=== PATIENT | female | born 1965 | race Hispanic/Latino ===

== ENCOUNTER 2018-08-25 20:43 | Observation (INO) | payer SELFPAY ==
[2018-08-25] MEDS: Nitroglycerin 0.4 MG TAB (25 Tab Bottle) ONE ×2 (21:17→21:23)
[2018-08-25] MEDS ORDERED: Morphine 4 MG/ML VIAL ONE (21:26)
[2018-08-25] MEDS ORDERED: Ondansetron PF 4 MG/2 ML Vial IVP PRN (21:43)
[2018-08-25] MEDS ORDERED: Nitroglycerin 0.4 MG TAB (25 Tab Bottle) PO PRN (21:43)
[2018-08-25] MEDS ORDERED: Aspirin 325 MG TAB PO SCH (22:30)
[2018-08-25 22:43] LABS: Troponin I Less than 0.010 ng/mL (< 0.028)
[2018-08-25] MEDS: Nitroglycerin 2% Ointment 1 INCH/1 GM Packet TOP SCH (23:20)
--- NOTE | 2018-08-25 23:35 | CT ---
CT CERVICAL SPINE WITHOUT CONTRAST: HISTORY: Pain. Inability to move the right upper and right lower extremities. COMPARISON: 04/15/2017 TECHNIQUE: Noncontrast CT cervical spine is performed in the axial plane. Reformatted images are submitted for interpretation. FINDINGS: Straightening of normal cervical lordosis is presumed to be due to patient position or muscle spasm. The current study is not tailored to assess for ligamentous injury. Cervical spine vertebral body h eight is maintained. No fracture. Appropriate alignment of the lateral masses of C1 and C2. Appropriate alignment of the facets. Inta ct odontoid process. Cervical spine vertebral body height is maintained, and there is no fracture. The visualized soft tissue neck structures, the upper mediastinum, and the lung apices are unremarkab le. Limited evaluation of the contents of the central spinal canal and neural foramina by technique. C2-C3: No significant central canal stenosis or neural foraminal narrowing. C3-C4: No significant central canal stenosis. Mild right foraminal narrowing. Left neural foramen is patent. C4-C5: There appears to be a broad-based disk bulge that abuts the thecal sac. Mild central canal s tenosis. The right neural foramen is patent. Mild left foraminal narrowing. C5-C6: Broad-based disk bulge is present with mild central canal stenosis. Degenerative changes in the bilateral uncovertebral joints results in mild right and mild to moderate left foraminal narrowin g. C6-C7: There is no significant central canal stenosis. The right neural foramen is patent. Mild le ft foraminal narrowing. C7-T1: No significant central canal stenosis. The neural foramina are patent. IMPRESSION: 1. No cervical spine fracture. 2. No evidence of significant central canal stenosis or neural foraminal narrowing. 3. If there is still concern, consider further evaluation with a cervical spine MRI without contrast . Additionally, consider a neurosurgical consultation. POS: [facility]
[2018-08-25] MEDS ORDERED: Dexamethasone 10 MG/ML VIAL SLOW IVP SCH (23:59)
[2018-08-26] MEDS: traMADol HCl 50 MG TAB PO PRN ×4 (00:20→18:26)
[2018-08-26] MEDS: Morphine 2 MG/ML SYRINGE SLOW IVP PRN ×4 (00:51→21:31)
[2018-08-26 02:11] LABS: Troponin I Less than 0.010 ng/mL (< 0.028)
[2018-08-26] MEDS: Acetaminophen 325 MG TAB PO PRN ×2 (03:17→14:47)
[2018-08-26 04:09] VITALS: BMI 35.7
[2018-08-26] MEDS: Cyclobenzaprine 10 MG TAB PO PRN ×2 (04:18→14:47)
[2018-08-26 05:32] LABS: #Basophils 0.1 thou/uL (0.0-0.2); #Lymphocytes 1.2 thou/uL (1.20-3.40); #Monocytes 0.1 thou/uL (0.11-0.59); %Basophils 1.3 % (0.0-1.0); %Eosinophils 0.3 % (0.0-10.0); %Lymphocytes 18.3 % (21.0-51.0); %Monocytes 1.3 % (0.0-10.0); %Neutrophils 78.7 % (42.0-75.0); Hemoglobin 13.3 g/dL (12.0-16.0); Mean Corpuscular HGB CONC 35.3 g/dL (32.0-36.0); Mean Corpuscular Hemoglobin 32.3 pg (27.0-31.0); Mean Corpuscular Volume 91.5 fL (78.0-98.0); Mean Platelet Volume 8.9 fL (7.4-10.4); Platelet Count 203 thou/uL (130-400); RBC Distribution Width 11.3 % (11.5-14.5); Red Blood Cell (RBC) Count 4.11 mill/uL (4.20-5.40); White Blood Cell (WBC) Count 6.4 thou/uL (4.8-10.8)
[2018-08-26 05:54] LABS: Anion Gap 14 mmol/L (10-20); BUN (Urea Nitrogen) 11 mg/dL (9.8-20.1); Calc. Creatinine Clearance 120 mL/min (70-130); Calcium 9.6 mg/dL (7.8-10.44); Carbon Dioxide 21 mmol/L (22-29); Chloride 108 mmol/L (98-107); Estimated GFR-MDRD 80; Glucose 151 mg/dL (70-105); Potassium 3.7 mmol/L (3.5-5.1); Sodium 139 mmol/L (136-145)
[2018-08-26] MEDS: Nitroglycerin 2% Ointment 1 INCH/1 GM Packet TOP SCH (06:39)
[2018-08-26] MEDS ORDERED: Aspirin 325 MG TAB PO SCH (08:00)
[2018-08-26] MEDS ORDERED: Dexamethasone 4 mg/ml Vial SLOW IVP SCH (10:15)
[2018-08-26] MEDS ORDERED: Famotidine 20 MG TAB PO SCH (10:15)
--- NOTE | 2018-08-26 15:53 | MRI ---
MRI CERVICAL SPINE WITHOUT CONTRAST 08/26/18 HISTORY: Pain and weakness to the lower extremities. COMPARISON: CT cervical spine prior day. CT cervical spine 04/15/17. FINDINGS: The cerebellar tonsils terminate at the level of the foramen magnum. No marrow infiltrative process. No acute fracture. No malalignment. The paraspinal soft tissues are unremarkable. The paraspinal musculature is within atrophy. The levels are as follows: C2-3: Mild disc desiccation. No neural foraminal or spinal canal narrowing. C3-4: Small right paracentral posterior disc osteophyte complex. Minimal effacement of the ventral CS F space. Spinal canal, not significantly narrowed. No neural foraminal narrowing. C4-5: Mild uncinate process hypertrophy. Very low grade broad based posterior disc osteophyte complex . Minimal effacement of the ventral CSF space with the spinal canal measuring approximately 9 mm. C5-6: There is a right paracentral posterior disc protrusion which does abut the exiting and traversi ng nerve roots. The spinal canal itself is not significantly narrowed. This is a right paracentral an d subforaminal posterior disc protrusion. C6-7: There is mild disc desiccation. Mild uncinate process hypertrophy. No significant neural forami nal or spinal canal narrowing. IMPRESSION: Right C5-C6 paracentral and subforaminal posterior disc protrusion abutting the exiting and traversin g nerve roots may be the cause of patient's symptoms. No acute fracture, malalignment, or evidence of recent injury. POS: [facility]
--- NOTE | 2018-08-26 16:06 | MRI ---
THORACIC SPINE MRI WITHOUT IV CONTRAST: HISTORY: A 52-year-old female with a history of weakness and pains all over the body. FINDINGS: There is no evidence for acute fracture. Marrow signal was unremarkable. No significant thoracic sp ine canal or lateral recess stenosis. No spinal cord mass or spinal cord compression. IMPRESSION: Unremarkable thoracic spine MRI without IV contrast. No abnormal marrow signal. No evidence for sig nificant stenosis. POS: [facility]
--- NOTE | 2018-08-26 16:08 | MRI ---
LUMBAR SPINE MRI WITHOUT IV CONTRAST: 08/26/18 HISTORY: 52-year-old female with history of urinary incompetence, crampy-like pains over the body. Multiplanar and multisequence MRI examination of the lumbar spine is performed. The conus medullaris region is unremarkable terminating at L1. There are mild generalized disc desiccation changes and lig ament and facet hypertrophic changes. L1-2, L2-3 and L3-4 levels demonstrated no significant canal, l ateral recess or foraminal stenosis. At L4-L5, there is slightly more prominent ligament and facet hypertrophic changes with very mild dis c bulging with very mild narrowing of the lateral recesses without significant foraminal stenosis. At L5-S1, there is a small central protrusion with left paracentral annular fissure with minimal narr owing of the left lateral recess and mild bilateral foraminal stenosis. No abnormal marrow signal. IMPRESSION: Left paracentral protrusion and associated annular fissure with mild left lateral recess stenosis and mild foraminal stenosis. Very mild lateral recess stenosis at L4-L5. No abnormal marrow signal or ot her significant acute process. POS: [facility]
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
[2018-08-26] MEDS: Dexamethasone 4 mg/ml Vial SLOW IVP SCH (21:35)
[2018-08-26] MEDS: Famotidine 20 MG TAB PO SCH (21:36)
[2018-08-27] MEDS: traMADol HCl 50 MG TAB PO PRN ×2 (02:53→08:44)
[2018-08-27] MEDS: Acetaminophen 325 MG TAB PO PRN (02:53)
[2018-08-27] MEDS: Morphine 2 MG/ML SYRINGE SLOW IVP PRN (03:51)
[2018-08-27] MEDS: Famotidine 20 MG TAB PO SCH (08:45)
[2018-08-27] MEDS: Dexamethasone 4 mg/ml Vial SLOW IVP SCH (08:46)
[2018-08-27 11:44] LABS: CKMB 0.8 ng/mL (0-6.6); Troponin I Less than 0.010 ng/mL (< 0.028)
--- NOTE | 2018-08-27 14:52 | CT ---
BRAIN CT WITHOUT IV CONTRAST: HISTORY: A 52-year-old female with a history of generalized weakness and chronic pain on the right side of bod y, difficulty swallowing and ambulating. FINDINGS: No evidence for a mass or midline shift. No intra- or extraaxial hemorrhage. Sinuses and mastoids d emonstrate some mild sinus mucosal congestion. Mastoids are clear. IMPRESSION: No significant acute intracranial process. No mass or bleed. POS: [facility]
[2018-08-27 16:11] VITALS: BP 113/58; TEMP 98.5
--- NOTE | 2018-08-27 17:22 | PRG ---
DATE OF SERVICE: 08/27/2018 This is a 30-minute initial hospital visit note in which 30 minutes were spent in review of the imagi ng and record, evaluation and examination of patient, and formulation of plan. Greater than 50% of t he time was spent in counseling on Ms. Jayne Luna. Ms. Luna was admitted for generalized weakness and pain. A bit unclear to me really where the fo idalia issue is, however, full spinal imaging in my opinion demonstrates no evidence of worrisome contri buting abnormality. Of course, there is evidence of neural foraminal stenosis in cervical spine, but again this does not fit with the patient's symptoms, which she states have been present for "years." Nonetheless, we do not have a head CT, I think pursue head CT just to fully evaluate her neural axi s, although if this is negative, I will sign off as I see no role for neurosurgical intervention on t his patient.
--- NOTE | 2018-08-28 15:13 | DIS ---
CHIEF COMPLAINT: Chest pain and shoulder pain. HISTORY OF PRESENT ILLNESS: The patient is a 52-year-old female who presented initially to the [facility] for chest pain and right shoulder pain. She initially had troponins done which were negative. E KG was normal. She then was found to have pain significantly in her right shoulder, her right back a nd also she has been complaining of right-sided upper extremity and lower extremity weakness. The noel garcia stated that this has been going on for a very long time. She has been treating herself with ov wo-wwy-tonlfte medications. The patient did have a cervical spine CT, which indicated that she did h ave some possible changes, broad-based disk bulge mild central canal stenosis at C5-C6. Given the extensity of the patient's symptoms, I did order an MRI cervical, lumbar and thoracic spine. Karlee ecially since she told me that she does have sometimes urinary incontinence. At this time, cervical spine MRI indicated that she did have C5-C6 paracentral and subforaminal posterior disk protrusion ab utting the existing and transversing nerve root. Again, given the patient's significant symptoms, I did consult Neurosurgery who DICTATION ENDS HERE
--- NOTE | 2018-08-29 20:38 | EKG ---
Test Reason : Blood Pressure : / mmHG Vent. Rate : 069 BPM Atrial Rate : 069 BPM P-R Int : 134 ms QRS Dur : 076 ms QT Int : 428 ms P-R-T Axes : 043 026 019 degrees QTc Int : 458 ms Normal sinus rhythm Normal ECG When compared with ECG of 13-APR-2017 05:42, No significant change was found Confirmed by LINO SEBASTIAN (2) on 08/29/2018 8:37:47 PM Referred By: Confirmed By:LINO SEBASTIAN
== END 2018-08-27 18:06 | disposition home or self-care (01) ==
LOC: 2SW 20:44
PROVIDERS: ADMIT Hospitalist; ATTEND Hospitalist
DX: R07.89 Other chest pain (principal); M25.511 Pain in right shoulder; M79.601 Pain in right arm; M48.061 Spinal stenosis, lumbar region without neurogenic claudication; M50.222 Other cervical disc displacement at C5-C6 level; M48.02 Spinal stenosis, cervical region; Z91.030 Bee allergy status
CPT/HCPCS: 36415; 70450; 72125; 72141; 72146; 72148; 80048; 82550; 84484; 85025; 93005; 93010; 96374; 96375; 96376; G0378; J1100; J2270; J2405